=== PATIENT | female | born 1975 | race Caucasian/White ===

== ENCOUNTER → 2020-08-16 14:49 | Outpatient (BNVA) | payer BC, SELFPAY | PROVIDERS: Visit Provider Obstetrics & Gynecology | DX: N93.8 Other specified abnormal uterine and vaginal bleeding (principal); N95.1 Menopausal and female climacteric states; Z01.419 Encounter for gynecological examination (general) (routine) without abnormal findings | CPT/HCPCS: 83001 ==

== ENCOUNTER → 2021-01-11 10:50 | Outpatient (BNVA) | payer BC, SELFPAY | PROVIDERS: Visit Provider Obstetrics & Gynecology | DX: R53.83 Other fatigue (principal); N95.1 Menopausal and female climacteric states | CPT/HCPCS: 84443 ==

== ENCOUNTER 2021-12-02 11:03 | Outpatient (CLI) | payer BC, SELFPAY ==
--- NOTE | 2021-12-02 11:30 | US_ITS ---
WS: [id number] Pelvic ultrasound, 12/02/2021 Clinical Data: R10.2 - Pelvic and perineal pain Comparison: None. Findings: The uterus is absent. The left ovary is not seen The right ovary measures 1.7 cm x 2.1 cm x 1.3 cm with no cysts or masses. There is no fluid in the cul-de-sac. US/US pelvic with transvaginal Impression: 1. Absent uterus. 2. Left ovary not seen. 3. Normal right ovary.
== END 2021-12-02 11:04 | disposition home or self-care (01) ==
PROVIDERS: PCP Pharmacist; Visit Provider Obstetrics & Gynecology
DX: R10.2 Pelvic and perineal pain (principal); Z90.710 Acquired absence of both cervix and uterus
CPT/HCPCS: 76830; 76856

== ENCOUNTER 2022-08-16 14:08 | Outpatient (CLI) | payer BC, SELFPAY ==
--- NOTE | 2022-08-16 14:19 | MM_ITS ---
WS: [id number] BILATERAL 3D TOMOSYNTHESIS DIGITAL SCREENING MAMMOGRAPHY WITH CAD CLINICAL INFORMATION: SCREENING HISTORY: Screening mammogram. No current complaints. COMPARISON: July 11, 2018 TECHNIQUE: Bilateral CC and MLO views. FINDINGS: The breasts are composed of dense fibroglandular density tissue, which can limit the detection of sma ll underlying mass lesions. No suspicious mass, asymmetry, calcifications, or architectural distortio n. No evidence of malignancy. MM/[id number] IMPRESSION: BI-RADS: 1-Negative FOLLOW UP: 1 Year Follow-up Recommend return to annual screening mammography.
== END 2022-08-16 14:09 | disposition home or self-care (01) ==
LOC: RAD 14:08
PROVIDERS: PCP Family Medicine; Visit Provider Family Medicine
DX: Z12.31 Encounter for screening mammogram for malignant neoplasm of breast (principal)
CPT/HCPCS: 77063; 77067